=== PATIENT | female | born 1995 | race Caucasian/White ===

== ENCOUNTER 2021-09-22 11:52 | Emergency (ER) | payer BC, SELFPAY ==
[2021-09-22 12:08] VITALS: BP 132/82; PULSE 91; RESP 18; TEMP 37; O2SAT 97
--- NOTE | 2021-09-22 12:10 | ED.URI ---
HPI - URI/Sore Throat General Chief Complaint: Upper Respiratory Infection Stated Complaint: Sore throat Time Seen by Provider: 09/22/21 12:11 Source: patient and RN notes reviewed Mode of arrival: ambulatory Limitations: no limitations History of Present Illness HPI Narrative: Vale is a 26 year old female who ambulated into the [facility]. She has a one day history of sore throat, left ear drainage ; stuffy nose and sneezy. she also complains of itchy, watery eyes. She does not take any daily medications except for anxiety medication and has not taken any OTC medications. denies fever or chills. MD elicited complaint: sore throat Related Data Home Medications Medication Instructions Recorded Confirmed Unable to Obtain Home Medications 09/22/21 09/22/21 Allergies Allergy/AdvReac Type Severity Reaction Status Date / Time No Known Allergies Allergy Verified 09/22/21 12:15 Review of Systems Review of Systems: CONSTITUTIONAL: Denies body aches, fever, chills, or sweats. EYES: Denies visual changes, redness, or discharge. ENT:+ rhinorrhea, +congestion,+ sore throat, or otalgia. CARDIOVASCULAR: Denies chest pain, palpitations, or edema. RESPIRATORY: + occasional cough, denies dyspnea. GASTROINTESTINAL: Denies abdominal pain, nausea, vomiting, or diarrhea. GENITOURINARY: Denies dysuria or hematuria. SKIN: Denies rash, itching, or wounds. MUSCULOSKELETAL: Denies back pain, joint pain, or myalgia. NEUROLOGIC: Denies headache, numbness, tingling, or weakness. PSYCH: Denies depression or anxiety. All systems reviewed & are unremarkable except as noted in HPI and below PMFSH Comments At time of signature, I have reviewed and agree with nursing past medical, surgical, social and family history unless otherwise noted. Please see nursing chart for further information. There is no relevant family history pertinent to the presenting complaint Exam Narrative: GENERAL: Well-appearing, well-nourished, and in no acute distress. HEAD: Normocephalic, atraumatic. EYES: EOMI. No redness or drainage. Conjunctivae normal. ENT: Mucous membranes pink and moist. Nasal membranes erythematous, clear rhinorrhea, Left TM with moderate fluid, no erythema, Posterior pharynx erythemic, mild edema, no exudate. Uvula midline. NECK: Normal AROM. Supple. Left anterior cervical lymphadenopathy. CHEST: No respiratory distress. Clear to auscultation. MUSCULOSKELETAL: No bony tenderness. EXTREMITIES: Normal range of motion. No edema. SKIN: Warm, dry, no rash. Capillary refill normal. Normal skin turgor. NEURO: No focal deficits. Alert and oriented x3. Gait steady. PSYCH: Normal affect. No signs of depression or anxiety. Course Vital Signs Vital signs: Vital Signs Temperature 37.0 C 09/22/21 12:08 Pulse Rate 91 09/22/21 12:08 Respiratory Rate 18 09/22/21 12:08 Blood Pressure 132/82 09/22/21 12:08 Pulse Oximetry 97 09/22/21 12:08 Temperature 37.0 C 09/22/21 12:08 Pulse Rate 91 09/22/21 12:08 Respiratory Rate 18 09/22/21 12:08 Blood Pressure 132/82 09/22/21 12:08 Pulse Oximetry 97 09/22/21 12:08 Reviewed. Pt has been instructed to follow up with her PCP regarding her elevated blood pressure today. MDM - URI/Sore Throat MDM Narrative Medical decision making narrative: Patient's nasal membranes are erythemic with clear drainage. Patient has itchy watery eyes. Patient has moderate amount of fluid in the left ear. Patient is sneezing. Patient does not take any fytf-eat-qhmjwon allergy medications. We discussed patient does have swollen lymph node on the left anterior cervical neck. Patient does have postnasal drainage. Patient will be given Zyrtec and Flonase daily. And instructed follow-up with her primary care physician in 3 to 5 days for continued symptoms. Differential Diagnosis Differential diagnosis: Likely upper respiratory infection, croup, bronchitis and other Medical Records
== END 2021-09-22 12:31 | disposition home or self-care (01) ==
PROVIDERS: Emergency Provider Nurse Practitioner Family
DX: B34.9 Viral infection, unspecified (principal)
CPT/HCPCS: 87081; 87880; 99213; G0463